=== PATIENT | female | born 1955 | race Caucasian/White ===

== ENCOUNTER 2016-09-13 08:14 | Day surgery (SDC) | payer BC ==
[2016-09-12 16:53] LABS: BASOPHILS 0.2 %; BASOPHILS ABSOLUTE 0.01 10/3/uL (0.0-0.16); EOSINOPHILS ABSOLUTE 0.23 10/3/uL (0.0-0.53); HEMATOCRIT 33.6 % (36.0-48.0); IMMATURE GRANULOCYTES 0.2 %; IMMATURE GRANULOCYTES ABSOLUTE 0.01 10/3/uL (0.0-0.11); LYMPHOCYTES 34.1 %; LYMPHOCYTES ABSOLUTE 1.57 10/3/uL (0.67-4.30); MEAN CORPUS HGB CONC 32.7 g/dL (32.0-36.0); MEAN CORPUSCULAR HEMOGLOB 29.3 pg (26.0-34.0); MEAN CORPUSCULAR VOLUME 89.6 fL (80-100); MEAN PLATELET VOLUME 8.7 fL (9.2-13.0); MONOCYTES 5.7 %; MONOCYTES ABSOLUTE 0.26 10/3/uL (0.21-1.20); NEUTROPHILS 54.8 %; NEUTROPHILS ABSOLUTE 2.52 10/3/uL (2.02-8.40); PLATELET COUNT 146 10/3/uL (150-400); RBC DISTRIBUTION WIDTH 13.4 % (12.0-16.0); RED CELL COUNT 3.75 10/6/uL (4.0-5.6); WHITE BLOOD CELLS 4.6 10/3/uL (4.5-10.5)
[2016-09-12 16:54] LABS: MANUAL DIFF NO %
[2016-09-12 16:57] LABS: ASCORBIC ACID (UR NOT ORDER) NEG (NEG); BILIRUBIN, URINE NEGATIVE (NEG); KETONE, URINE NEGATIVE (NEG); WBC (NOT ORDERED) (RFLEX) 14 (0-5)
[2016-09-12 16:58] LABS: LEUKOCYTE ESTERASE(NOT OR TRACE (NEG)
[2016-09-12 17:13] LABS: BUN (BLOOD UREA NITROGEN) 21 MG/DL (6-23); CALCIUM, SERUM 9.2 MG/DL (8.5-10.4); CHLORIDE, SERUM 103 MMOL/L (96-112); CO2 (CARBON DIOXIDE) 33 MMOL/L (24-34); CREATININE 0.95 MG/DL (0.55-1.02); GFR AFRICAN AMERICAN 76 ML/MIN (>=60); GFR NON AFRICAN AMERICAN 66 ML/MIN (>=60); GLUCOSE, SERUM 101 MG/DL (60-99); POTASSIUM, SERUM 3.5 MMOL/L (3.5-5.3); SODIUM, SERUM 143 MMOL/L (135-148)
--- NOTE | ~2016-09-13 | OP ---
Record Of Operation [facility] [address] [place]. [address] NAME: HOWIE BELL : 59 STATUS : [facility]#: [id number] AGE: 61 ADM/REG DATE : 09/13/16 MR#: [id number] REPORT SERV DATE: 09/13/16 DICTATED BY: EMANUEL ROJAS DATE: 09/13/16 REPORT STATUS : Draft TRANSCRIBED BY: MODLulu DATE: 09/13/16 DATE OF PROCEDURE: 09/13/2016 PREOPERATIVE DIAGNOSIS: Right ureteral and renal stones. POSTOPERATIVE DIAGNOSIS: Right ureteral and renal stones and urethral stricture. PROCEDURES: Cystoscopy, urethral dilation with sounds, right retrograde pyelogram, right rigid ureteroscopy, laser ablation of ureteral stone, basket extraction of ureteral stone fragments, right flexible ureteral pyeloscopy, laser ablation of renal stones, placement of right ureteral stent, litholapaxy of bladder stone fragments. SURGEON: Emanuel Rojas M.D. ANESTHESIA: General. DRAINS: A 6 x 28 double-J [place] stent with a string. ESTIMATED BLOOD LOSS: None. COMPLICATIONS: None. DISPOSITION: Extubated to recovery room. HISTORY: This 61-year-old patient of Dr. Conklin's with the above-stated problems. She wished to have the surgery done on this particular day, so I am performing this surgery for him. Risks and benefits have been explained in detail to the patient including but not limited to bleeding, infection, damage to adjacent structures, need for additional procedures, need for ureteral stent, and ureteral stent removal. She stated understanding and is willing to proceed. PROCEDURE IN DETAIL: After consent was obtained, the patient was taken to the operating room and placed on the operative table in the supine position. General anesthetic was induced. The patient was then placed in dorsal lithotomy position. Her perineum was prepped and draped in the usual sterile fashion. A accounts executive film on the table shows her distal 1 cm stone in the region of the right pelvis. We cannot see the 3 mm stone in her right kidney. We were unable to pass the 22-Korean obturator with sheath. The Jairo sounds were then used to dilate her urethra to 28-Korean. We were then able to perform cystoscopy with the 30- and 70-degree lens. There were no evidence of any tumor, stones, or foreign bodies seen in the bladder. She had clear efflux from her left ureteral orifice but no efflux was seen from her right ureteral orifice. The right ureteral orifice was cannulated with the open- ended stent and a retrograde pyelogram was performed on that side. We saw contrast up to the stone but no contrast bypassed the stone. A 0.038 Bents[place] guidewire was passed by the stone with a mild amount of manipulation. This was passed up to the region of the kidney. The open-ended was removed. The balloon dilator was used to dilate the distal ureter. The bladder was drained and the scope and sheath were removed leaving the safety wire in place. Record Of Operation [facility] [address] [facility] [place]. [address] NAME: HOWIE BELL : 59 STATUS : [facility]#: [id number] AGE: 61 ADM/REG DATE : 09/13/16 MR#: [id number] REPORT SERV DATE: 09/13/16 DICTATED BY: EMANUEL ROJAS DATE: 09/13/16 REPORT STATUS : Draft TRANSCRIBED BY: MODLulu DATE: 09/13/16 The safety wire was clamped to the drapes. The rigid ureteroscope was passed into the distal ureter up to the level of the stone. A retrograde pyelogram was then performed and we were able to opacify the ureter beyond the stone. This did show hydroureteronephrosis. The 200 laser fiber was used to break up the stone into smaller pieces. The filiform basket was used to remove these pieces into the bladder. The basket was removed and the ureter was scoped up to the proximal portion. No other significant stone fragments were noted. The rigid ureteroscope was set at the ureteral orifice and a retrograde pyelogram was performed. This showed the collecting system to be intact but hydronephrotic. The rigid ureteroscope was then removed. The safety wire was used to allow a Helio to pass the second wire into the kidney. The safety wire was then clamped to the drapes. A ureteral access sheath was passed over the working wire into the proximal ureter and the inner core was removed. The flexible ureteroscope was passed over the working wire into the kidney. The working wire was removed and a retrograde pyelogram was performed. All calices were evaluated. All calices were dilated. There were tiny calcifications hidden under the mucosa as Matt's plaques in all calices. There was a 3 mm stone that was just popping through the mucosa in an upper pole calyx. A laser was used to treat this and break it up into tiny pieces. No other treatable stones were noted. All calices were then re-evaluated and found to be without abnormalities. We backed down the ureter and found it to be without abnormalities. A retrograde pyelogram was performed, and we found the ureter to be intact. The flexible ureteroscope was then removed. The safety wire was backed through the cystoscope. The 6 x 28 [place] double-J stent was passed with a good curl seen in the renal pelvis and in the bladder. It was seen to be draining after it was placed. A string was left exiting the urethra. This was secured to her right inner thigh using Mastisol and Tegaderm. The stone fragments were lying in the dependent portion of the patient's bladder from her cystocele. A litholapaxy was performed with the disposable Zeenshare evacuator. These pieces were sent off to Pathology for stone composition analysis. We re-scoped the bladder and found the stent to be in good position and draining. The bladder was drained. The scope and sheath were removed. She was awakened from her anesthetic, extubated, and taken to the recovery room in good condition. PLAN: The plan will be to send her home today with Levaquin 250 mg #5 to start tomorrow; ondansetron 4 mg #10 to use as needed; and oxybutynin 5 mg #20 to use every 6 hours as needed. She is on pain management with two different kinds of morphine, so I am unable to write her for any pain medication. She was instructed to use AZO 2 pills three times a day while the stent is in place. She may return to work on Friday if she is tolerating the stent, otherwise on Friday next week. She may remove the stent on Friday night by utilizing the string. She may follow up in two to three weeks with a KUB. ORSALIE/RIGOBERTO Emanuel Rojas M.D. / [id number] Record Of Operation [address] [place] [address] NAME: HOWIE BELL : 59 STATUS : [facility] PAT#: [id number] AGE: 61 ADM/REG DATE : 09/13/16 MR#: [id number] REPORT SERV DATE: 09/13/16 DICTATED BY: EMANUEL ROJAS DATE: 09/13/16 REPORT STATUS : Draft TRANSCRIBED BY: RIGOBERTO DATE: 09/13/16 CC: Malinda Ortiz M.D.
[~2016-09-13 08:14] MED LIST: ASAB PO; CYMBALTA60 PO; FLOMAX4 PO; GLUCOPHAGE1000 MG PO; METHOC500B PO; MSCONT100 PO; MSIMMR15 PO; NEUR600 PO; PR25 PO; PRAVAC PO; TRAZODONE150 MG PO; VITAMIN B-121000 MC1 SL; VITAMIN D31000 UNIT PO
[2016-09-18 15:46] LABS: STONE COMPOSITION TWO DNR (())
== END 2016-09-13 14:08 | disposition home or self-care (01) ==
LOC: SDC 08:14
PROVIDERS: Urology
PROC: 0TF68ZZ Fragmentation in Right Ureter, Via Natural or Artificial Opening Endoscopic (ICD-10-PCS; 2016-09-13)
PROC: 0T768DZ Dilation of Right Ureter with Intraluminal Device, Via Natural or Artificial Opening Endoscopic (ICD-10-PCS; 2016-09-13)
PROC: 0T7D8ZZ Dilation of Urethra, Via Natural or Artificial Opening Endoscopic (ICD-10-PCS; principal; 2016-09-13 09:45)
DX: N20.2 Calculus of kidney with calculus of ureter (principal); G47.33 Obstructive sleep apnea (adult) (pediatric); E11.9 Type 2 diabetes mellitus without complications; J45.909 Unspecified asthma, uncomplicated; M79.7 Fibromyalgia
CPT/HCPCS: 74420; 80048; 81001; 82365; 82962; 85025; A9270-GY; C1726; C1758; C1769; C1892; C1894; C2617; J2250; J2405; J2710; J3010; Q9967